=== PATIENT | male | born 1950 | race Caucasian/White ===

== ENCOUNTER 2017-03-19 11:41 | Emergency (ER) | payer OTHER ==
[~2017-03-19] VITALS: Ht 177.8 cm; Wt 85.0 kg
[~2017-03-19 11:41] MED LIST: NAPR-260 PO; OXYC-279 PO; TRAM50TA2 PO
[2017-03-19 11:43] VITALS: Ht 177.8 cm; Wt 85.0 kg
[2017-03-19] MEDS ORDERED: ONDANSETRON (ODT) 4 MG TAB ODT STA (12:15)
--- NOTE | 2017-03-19 13:38 | RADRPT ---
PROCEDURE: CT Abdomen and Pelvis without contrast. CLINICAL INDICATION: Abdominal pain. Nausea and vomiting. History of left inguinal repair TECHNIQUE: CT scan of the abdomen and pelvis without contrast was performed on a multi-slice CT [facility] without intravenous contrast. Coronal and sagittal reformatted images were obtained from the axial source images. Images were reviewed on a high-resolution PACS workstation. One or more of the following does reduction techniques were used: Automated exposure control; adjustment of the mA an d/or kV according to patient size; use of the aorta of reconstruction technique. The total exam CTD I equals 13.97 mGy and the total exam DLP equals 926.95 mGy-cm. COMPARISON: None available. FINDINGS: There is mild basilar atelectasis and/or scarring. Heart size is normal, and there is no evidence o f pericardial thickening or effusion. Coronary artery calcifications are present The liver and spleen are normal given the limitations of a noncontrast CT examination. There is fat ty atrophy of the pancreas, particular in the region of the head and uncinate process. Questionable inflammatory change in the region of the uncinate process likely represents small amounts of normal pancreatic tissue within fatty atrophy. The gallbladder is normal. The adrenal glands are normal. The kidneys without renal calculus or hydronephrosis. The aorta is of normal caliber. Atherosclerotic calcifications are present. There is no retroperito matt lymph node enlargment. There is no evidence of large or small bowel obstruction. A normal appendix is identified. No karly e fluid or fluid collections are identified. No inflammatory changes are seen. There is a prominent left external iliac lymph node likely reactive from left inguinal surgery. Pat ient is status post left inguinal hernia repair. There is a tiny residual hernia containing fat. T here is no evidence of bowel within or near the hernia. No pelvic free fluid is present. The bladd er is within normal limits. There is apparent skin thickening of the lateral thighs and bilateral buttocks. There is bilateral L5 spondylolysis with approximately 3 mm of anterolisthesis of L5 on S1. There are mild degenerativ e changes of the lumbar spine at L2-L3. The bones are otherwise grossly intact. IMPRESSION: 1. No definite CT evidence of acute intra-abdominal or pelvic process. 2. Fatty infiltration of the pancreas. Subtle linear increased density in the expected location of the uncinate most likely represent small amounts of residual normal pancreatic tissue, though infla mmatory change could also have this appearance. Recommend correlation with pancreatic enzymes and d uodenitis. 3. Atherosclerotic vascular disease including coronary artery calcifications. 4. Evidence of prior left inguinal hernia repair with tiny persistent fat containing inguinal herni a. There is no evidence of bowel within or near the hernia site. Prominent left external iliac lym ph nodes are likely reactive in nature. 5. Bilateral L5 spondylolysis with grade 1 anterolisthesis of L5 on S1. 6. Apparent skin thickening of the lateral thighs and bilateral buttocks. Recommend correlation [facility] physical exam. RPTAT: KK .Doug Ji MD, MD Date Time Electronically viewed and signed by .Doug Ji MD, on 03/19/2017 13:37 .B/
[2017-03-19] MEDS ORDERED: HYDR-902 PO (13:52)
[2017-03-19] MEDS ORDERED: GABA100C14 PO (13:56)
[2017-03-19] MEDS ORDERED: CLON-412 PO (13:56)
--- NOTE | 2017-03-19 14:02 | ERD ---
ER Documentation Chief Complaint Date/Time DATE: 03/19/17 TIME: 13:59 Chief Complaint Abd with N/V x 1 week HPI Patient is a 66-year-old male with hepatitis C who presents with abdominal pain. The patient said that he feels "bloating" and diarrhea. He tried stool softeners. He has had diarrhea. He had nausea but no vomiting. He had decreased urination. The symptoms started 1 week prior. He said "I have a little bit of pain". He also says that he has swelling to the right groin where he was injecting himself with heroin. He does not currently have a primary doctor. He had a hernia surgery about 1 year ago. Upon review of old medical records this is the patient's seventh visit to the ER since 2009. ROS All systems reviewed and are negative except as per history of present illness. Medications Home Meds Reported Medications Gabapentin* (Gabapentin*) 100 Mg Capsule, 100 MG PO TID, #90 CAP 03/19/17 Clonazepam* (Klonopin*) 1 Mg Tablet, 2 MG PO BID Y for ANXIETY, TAB 03/19/17 Hydrocodone/Acetaminophen ([place] 10-325 Tablet) 1 Each Tablet, 1 EACH PO BID Y for SEVERE PAIN LEVEL 7-10, TAB 03/19/17 Discontinued Scripts Naproxen* (Naprosyn*) 500 Mg Tablet, 500 MG PO BID Y for PAIN AND/OR INFLAMMATION, #30 TAB Prov:BARRY TOMLINSON PA-C 04/13/16 Oxycodone HCl/Acetaminophen (Percocet 5-325 mg Tablet) 1 Each Tablet, 1 EACH PO QHS, #4 TAB Prov:BARRY TOMLINSON PA-C 04/13/16 Oxycodone HCl/Acetaminophen (Percocet 5-325 mg Tablet) 1 Each Tablet, 1 EACH PO BID, #15 TAB Prov:BARRY TOMLINSON PA-C 04/09/16 Tramadol HCl (Tramadol HCl) 50 Mg Tablet, 50 MG PO Q4 Y for PAIN, #20 TAB Prov:YAZAN MERRILL PA-C 04/06/16 Allergies Allergies: Coded Allergies: No Known Allergies (Verified Allergy, Mild, 04/18/16) PMhx/Soc History of Surgery: Yes (LEFT INGUINAL HERNIA REPAIR) Anesthesia Reaction: No Hx Neurological Disorder: Yes (seizures) Hx Respiratory Disorders: No Hx Cardiac Disorders: No Hx Psychiatric Problems: No Hx Miscellaneous Medical Probl: Yes (seizures, hep c, SCOLIOSIS) Hx Alcohol Use: No Hx Substance Use: No Hx Tobacco Use: Yes (1/2 PPD) Smoking Status: Current every day smoker FmHx Family History: diabetes Physical Exam Vitals Vital Signs Date Time Temp Pulse Resp B/P Pulse Ox O2 Delivery O2 Flow Rate FiO2 03/19/17 11:43 98.1 104 20 150/67 99 Physical Exam Const: No acute distress Head: Atraumatic Eyes: Normal Conjunctiva ENT: Normal External Ears, Nose and Mouth. Neck: Full range of motion..~ No meningismus. Resp: Clear to auscultation bilaterally Cardio: Regular rate and rhythm, no murmurs Abd: Soft, non tender, non distended. Normal bowel sounds Skin: Induration to the right groin with multiple areas of injection drug use , no fluctuant abscess Back: No midline or flank tenderness Ext: No cyanosis, or edema Neur: Awake and alert Psych: Normal Mood and Affect Results 24 hrs Current Medications Medications (Trade) Dose Ordered Sig/Marilia Route PRN Reason Start Time Stop Time Status Last Admin Dose Admin Ondansetron HCl (Zofran Odt) 4 mg ONCE STAT ODT 03/19/17 12:15 03/19/17 12:16 DC 03/19/17 12:44 Procedures/MDM Smoking Cessation Therapy: Pt. was lectured for greater than 3 minutes on the health risks of continued smoking and the benefits of cessation. CT abdomen pelvis shows no acute obstruction or surgical process per radiology. Patient is a 66-year-old male who presents with right lower extremity cellulitis. The patient will be given Bactrim and Keflex for a cellulitis. He does not have any sign of abscess that needs drainage at this time. CT scan shows no sign of obstruction or serious bacterial infection. I doubt sepsis. I believe outpatient management is appropriate. The patient will need to follow -up closely with the local clinics within 24-48 hours as he does not have a primary doctor currently. At this point I doubt appendicitis, cholecystitis, pancreatitis, or bowel obstruction. The patient could return for any worsening symptoms. He will be given a prescription for Bactrim, Keflex, and Zofran. Departure Diagnosis: Primary Impression: Cellulitis Site of cellulitis: extremity Site of cellulitis of extremity: lower extremity Laterality: right Qualified Code: L03.115 - Cellulitis of right lower extremity Additional Impression: Abdominal pain Abdominal location: generalized Qualified Code: R10.84 - Generalized abdominal pain Condition: Fair Patient Instructions: Abdominal Pain, Cellulitis Referrals: [facility] YOU HAVE RECEIVED A MEDICAL SCREENING EXAM AND THE RESULTS INDICATE THAT YOU DO NOT HAVE A CONDITION THAT REQUIRES URGENT TREATMENT IN THE EMERGENCY DEPARTMENT. FURTHER EVALUATION AND TREATMENT OF YOUR CONDITION CAN WAIT UNTIL YOU ARE SEEN IN YOUR DOCTORS OFFICE WITHIN THE NEXT 1-2 DAYS. IT IS YOUR RESPONSIBILITY TO MAKE AN APPOINTMENT FOR FOLOW-UP CARE. IF YOU HAVE A PRIMARY DOCTOR --you should call your primary doctor and schedule an appointment IF YOU DO NOT HAVE A PRIMARY DOCTOR YOU CAN CALL OUR PHYSICIAN REFERRAL HOTLINE AT IF YOU CAN NOT AFFORD TO SEE A PHYSICIAN YOU CAN CHOSE FROM THE FOLLOWING [facility] [address] [facility] [address] [facility] [address] [facility] [address] [facility] [address] [facility]. [facility]. [address] Additional Instructions: Call your primary care doctor TOMORROW for an appointment during the next 1-2 days.See the doctor sooner or return here if your condition worsens before your appointment time. SUSAN BENÍTEZ MD Mar 19, 2017 14:01
[2017-03-19] MEDS ORDERED: DOCU-144 PO (14:16)
[2017-03-19] MEDS ORDERED: ONDA4TAB14 PO (14:16)
[2017-03-19] MEDS ORDERED: CEPH-443 PO (14:16)
[2017-03-19] MEDS ORDERED: SULF1TAB31 PO (14:16)
== END 2017-03-19 14:31 | disposition home or self-care (01) ==
LOC: E/R 11:41
DX: L03.115 Cellulitis of right lower limb (principal); R10.84 Generalized abdominal pain; F17.210 Nicotine dependence, cigarettes, uncomplicated; R11.0 Nausea; R40.2142 Coma scale, eyes open, spontaneous, at arrival to emergency department; R40.2252 Coma scale, best verbal response, oriented, at arrival to emergency department; R40.2362 Coma scale, best motor response, obeys commands, at arrival to emergency department
CPT/HCPCS: 74176; Z7610

== ENCOUNTER 2017-04-16 10:06 | Emergency (ER) | payer OTHER ==
[~2017-04-16] VITALS: Ht 182.9 cm; Wt 80.0 kg
[~2017-04-16 10:06] MED LIST changes: +CEPH-443 PO; +CLON-412 PO; +DOCU-144 PO; +GABA100C14 PO; +HYDR-902 PO; -NAPR-260 PO; +ONDA4TAB14 PO; -OXYC-279 PO; +SULF1TAB31 PO; -TRAM50TA2 PO
[2017-04-16 10:19] VITALS: Ht 182.9 cm; Wt 80.0 kg
[2017-04-16] MEDS ORDERED: HYDROCODONE/APAP (10/325) TAB PO ONE (11:00)
--- NOTE | 2017-04-16 13:05 | ERD ---
ER Documentation Chief Complaint Date/Time DATE: 04/16/17 TIME: 13:03 Chief Complaint refill of norco,gabapentin, klonopin HPI Patient is a 66-year-old male with chronic pain who presents for pain medicine. He says that he ran out of his pain medication. He said that his doctor was not working yesterday or this week because he is on vacation. He said that he ran out of Klonopin, [place], and gabapentin. He has lower back pain. He does not currently have a pain management doctor. ROS All systems reviewed and are negative except as per history of present illness. Medications Home Meds Active Scripts Docusate Sodium* (Colace*) 100 Mg Capsule, 100 MG PO TID, #30 CAP Prov:SUSAN BENÍTEZ MD 03/19/17 Ondansetron (Ondansetron Odt) 4 Mg Tab.rapdis, 4 MG PO Q6H Y for NAUSEA AND/OR VOMITING, #30 TAB Prov:SUSAN BENÍTEZ MD 03/19/17 Cephalexin* (Keflex*) 500 Mg Capsule, 500 MG PO QID for 7 Days, CAP Prov:SUSAN BENÍTEZ MD 03/19/17 Sulfamethoxazole/Trimethoprim* (Bactrim Ds* Tablet) 1 Each Tablet, 1 TAB PO BID , #14 TAB Prov:SUSAN BENÍTEZ MD 03/19/17 Reported Medications Gabapentin* (Gabapentin*) 100 Mg Capsule, 100 MG PO TID, #90 CAP 03/19/17 Clonazepam* (Klonopin*) 1 Mg Tablet, 2 MG PO BID Y for ANXIETY, TAB 03/19/17 Hydrocodone/Acetaminophen ([place] 10-325 Tablet) 1 Each Tablet, 1 EACH PO BID Y for SEVERE PAIN LEVEL 7-10, TAB 03/19/17 Allergies Allergies: Coded Allergies: No Known Allergies (Verified Allergy, Mild, 04/18/16) PMhx/Soc History of Surgery: Yes (LEFT INGUINAL HERNIA REPAIR) Anesthesia Reaction: No Hx Neurological Disorder: Yes (seizures) Hx Respiratory Disorders: No Hx Cardiac Disorders: No Hx Psychiatric Problems: No Hx Miscellaneous Medical Probl: Yes (seizures, hep c, SCOLIOSIS) Hx Alcohol Use: No Hx Substance Use: No Hx Tobacco Use: Yes (1/2 PPD) Smoking Status: Never smoker FmHx Family History: No diabetes Physical Exam Vitals Vital Signs Date Time Temp Pulse Resp B/P Pulse Ox O2 Delivery O2 Flow Rate FiO2 04/16/17 10:19 98.2 87 18 143/83 99 Physical Exam Const: No acute distress Head: Atraumatic Eyes: Normal Conjunctiva ENT: Normal External Ears, Nose and Mouth. Neck: Full range of motion..~ No meningismus. Resp: Clear to auscultation bilaterally Cardio: Regular rate and rhythm, no murmurs Abd: Soft, non tender, non distended. Normal bowel sounds Skin: No petechiae or rashes Back: No midline or flank tenderness Ext: No cyanosis, or edema Neur: Awake and alert Psych: Normal Mood and Affect Results 24 hrs Current Medications Medications (Trade) Dose Ordered Sig/Marilia Route PRN Reason Start Time Stop Time Status Last Admin Dose Admin Acetaminophen/ Hydrocodone Bitart ([place] (10)) 1 tab ONCE ONCE PO 04/16/17 11:00 04/16/17 11:01 DC 04/16/17 11:27 Procedures/MDM Smoking Cessation Therapy: Pt. was lectured for greater than 3 minutes on the health risks of continued smoking and the benefits of cessation. Patient is a 66-year-old male who presents with acute on chronic lower back pain. The patient was told that he will not be given prescriptions for controlled substances such as [place] or Klonopin. I told him that I would give him a prescription for gabapentin but he does not know the dosage so I will not give him this prescription. The patient went to follow-up with his primary doctor for reevaluation within 24-48 hours. I told him that he can follow-up with a pain management doctor and this would be beneficial to him. I have given him information for Dr. Torres. At this point I doubt cauda equina syndrome, epidural abscess, or epidural hematoma. The patient can return for any worsening symptoms. Departure Diagnosis: Primary Impression: Chronic pain Chronic pain type: other chronic pain Qualified Code: G89.29 - Other chronic pain Condition: Fair Patient Instructions: Chronic Pain Referrals: STACIE TORRES Additional Instructions: SPECIALIST: YOU HAVE A MEDICAL CONDITION WHICH REQUIRES YOU TO SEE A SPECIALIST WITHIN THE NEXT 1-2 DAYS. PLEASE FOLLOW UP WITH YOUR PRIMARY PHYSICIAN FOR REFFERAL.IF YOU DO NOT HAVE A PRIMARY CARE PHYSICIAN AND/OR YOU CAN NOT AFFORD TO SEE A PHYSICIAN THE FOLLOWING RESOURCES HAVE BEEN SUPPLIED TO YOU. IT IS YOUR RESPONSIBILITY TO BE SEEN BY THE SPECIALIST SUSAN BENÍTEZ MD Apr 16, 2017 13:05
== END 2017-04-16 11:41 | disposition home or self-care (01) ==
LOC: E/R 10:06
DX: G89.29 Other chronic pain (principal); M54.5 Low back pain; Z87.891 Personal history of nicotine dependence
CPT/HCPCS: Z7502; Z7610; 99283